=== PATIENT | male | born 1975 | race African-American/Black ===

== ENCOUNTER 2023-02-05 04:10 | Day surgery (SDC) | payer OTHER ==
[2023-02-02 17:01] VITALS: BMI 27.7
[2023-02-05] MEDS ORDERED: BACITRACIN ZINC 15 GM TUBE TOPICAL OINTMENT ONE (12:37)
[2023-02-05] MEDS ORDERED: PROPOFOL 40 ML ONE (12:43)
[2023-02-05] MEDS ORDERED: MIDAZOLAM HCL 2 MG/2 ML SINGLE DOSE VIAL ONE (12:43)
[2023-02-05] MEDS ORDERED: LIDOCAINE HCL/PF 2% SDV 5ML VIAL ONE (12:43)
[2023-02-05] MEDS ORDERED: ROCURONIUM BROMIDE 50 MG/5 ML SYRINGE ONE ×2 (12:43→14:24)
[2023-02-05] MEDS ORDERED: ceFAZolin SODIUM 1 GM VIAL ONE (13:06)
[2023-02-05] MEDS ORDERED: DEXAMETHASONE SOD PHOSPHATE 4 MG/1 ML VIAL ONE (13:06)
[2023-02-05] MEDS ORDERED: ONDANSETRON 4 MG/2 ML VIAL ONE ×2 (13:11→15:37)
[2023-02-05] MEDS ORDERED: ceFAZolin SODIUM 1 GM VIAL IVPB ONE (13:25)
[2023-02-05] MEDS ORDERED: LABETALOL HCL 20 MG/4 ML VIAL ONE (13:41)
[2023-02-05] MEDS ORDERED: hydrALAZINE HCL 20 MG/ML VIAL ONE ×2 (13:51→14:38)
[2023-02-05] MEDS ORDERED: NEOSTIGMINE METHYLSULFATE 0.5 MG/1 ML - 10 ML MDV ONE (14:42)
[2023-02-05] MEDS ORDERED: GLYCOPYRROLATE 0.2 MG/1 ML VIAL ONE (14:42)
[2023-02-05] MEDS ORDERED: BACITRACIN ZINC 15 GM TUBE TOPICAL OINTMENT TP ONE (14:56)
[2023-02-05] MEDS ORDERED: ONDANSETRON 4 MG/2 ML VIAL IVPUSH PRN (15:34)
[2023-02-05] MEDS ORDERED: oxyCODONE HCL 5 MG TABLET PO PRN (15:34)
[2023-02-05] MEDS ORDERED: ACETAMINOPHEN 1000 MG/100 ML BAG IVPB ONE (15:35)
[2023-02-05] MEDS ORDERED: LACTATED RINGERS SOLUTION 1,000 ML IV SCH (15:45)
[2023-02-05] MEDS ORDERED: oxyCODONE HCL 5 MG TABLET ONE (17:59)
[2023-02-05] MEDS ORDERED: ACETAMINOPHEN INJECTION 100 ML IVPB ONE (17:59)
[2023-02-05 19:41] VITALS: RESP 20; TEMP 98
[2023-02-05 19:43] VITALS: BP 130/86; PULSE 80
== END 2023-02-05 18:46 | disposition home or self-care (01) ==
LOC: JASU-SURG 04:10
PROVIDERS: ATTEND Otolaryngology
PROC: 09TU8ZZ Resection of Right Ethmoid Sinus, Via Natural or Artificial Opening Endoscopic (ICD-10-PCS; 2023-02-05)
PROC: 0CTQ0ZZ Resection of Adenoids, Open Approach (ICD-10-PCS; 2023-02-05)
PROC: 09BT8ZZ Excision of Left Frontal Sinus, Via Natural or Artificial Opening Endoscopic (ICD-10-PCS; 2023-02-05)
PROC: 09BS8ZZ Excision of Right Frontal Sinus, Via Natural or Artificial Opening Endoscopic (ICD-10-PCS; 2023-02-05)
PROC: 8E09XBZ Computer Assisted Procedure of Head and Neck Region (ICD-10-PCS; 2023-02-05)
PROC: 09BM8ZZ Excision of Nasal Septum, Via Natural or Artificial Opening Endoscopic (ICD-10-PCS; 2023-02-05)
PROC: 09TL8ZZ Resection of Nasal Turbinate, Via Natural or Artificial Opening Endoscopic (ICD-10-PCS; 2023-02-05)
PROC: 09TV8ZZ Resection of Left Ethmoid Sinus, Via Natural or Artificial Opening Endoscopic (ICD-10-PCS; principal; 2023-02-05 13:00)
DX: J32.4 Chronic pansinusitis (principal); J35.3 Hypertrophy of tonsils with hypertrophy of adenoids; J34.3 Hypertrophy of nasal turbinates; J34.2 Deviated nasal septum
CPT/HCPCS: 88304-TC; 94760